=== PATIENT | male | born 1965 | race African-American/Black ===

== ENCOUNTER 2017-09-24 11:43 | Emergency (ER) | payer SELFPAY ==
[~2017-09-24] VITALS: Ht 190.5 cm; Wt 100.0 kg
[2017-09-24 11:49] VITALS: BP 145/79; PULSE 96; RESP 20; TEMP 98.9; O2SAT 98
--- NOTE | 2017-09-24 12:10 | PD ---
HPI Chief Complaint: Cold / Flu Symptoms Time Seen by Provider: 12:02 Travel History International Travel<30 days: No Contact w/Intl Traveler<30days: No Traveled to known affect area: No History of Present Illness HPI 52-year-old male presents emergency department for evaluation of cough, chest congestion, sore throat 3 days. Patient is uncertain of fever. He has had intermittent chills. Cough is nonproductive. Has tried ahum-bov-asxjouh medication with no relief of his symptoms. Patient has no other symptoms to report. [facility] Past Medical History Medical History: Denies Significant Hx Tetanus Vaccination: Unknown Past Surgical History Surgical History: No Previous Surgery Social History Alcohol Use: No Tobacco Use: No Substance Use: No Allergies-Medications (Allergen,Severity, Reaction): Coded Allergies: No Known Allergies (Unverified , 09/24/17) Reported Meds & Prescriptions Reported Meds & Active Scripts Active No Active Prescriptions or Reported Medications Review of Systems Except as stated in HPI: all other systems reviewed are Neg Physical Exam Narrative GENERAL: Well-nourished, well-developed male patient in no acute distress SKIN: No rashes, ecchymoses or lesions. Cool and dry. HEAD: Normocephalic. EYES: No scleral icterus. No injection or drainage. ENT: Mucosa pink and moist. Pharynx with erythema, no exudate no uvular edema. No uvular, palatal, or tonsillar deviation. Airway patent. Nasal turbinates appear normal without nasal blood, purulent drainage or septal hematoma. NECK: Supple, trachea midline. No JVD or lymphadenopathy. CARDIOVASCULAR: Regular rate and rhythm without murmurs, gallops, or rubs. RESPIRATORY: Breath sounds equal bilaterally. No accessory muscle use. GASTROINTESTINAL: Abdomen soft, non-tender, nondistended. MUSCULOSKELETAL: No cyanosis, or edema. BACK: Nontender without obvious deformity. No CVA tenderness. Data Data Last Documented VS Vital Signs Date Time Temp Pulse Resp B/P (MAP) Pulse Ox O2 Delivery O2 Flow Rate FiO2 09/24/17 11:49 98.9 96 20 145/79 (101) 98 Orders Orders Influenzae A/B Antigen (09/24/17 12:10) Group A Rapid Strep Screen (09/24/17 12:10) Dexamethasone Inj (Decadron Inj) (09/24/17 12:30) Strep Culture (Group A) (09/24/17 12:15) Ed Discharge Order (09/24/17 12:48) [facility] Medical Decision Making Medical Screen Exam Complete: Yes Emergency Medical Condition: Yes Medical Record Reviewed: Yes Differential Diagnosis Pharyngitis viral versus strep versus common cold versus postnasal drip versus allergies Narrative Course 52-year-old male presents emergency department for evaluation of sore throat, cough, congestion 3 days. Patient appears nontoxic. Slightly tachycardic but otherwise vital signs are stable. Rapid strep screen is negative. Influenza is negative. Patient will be treated for viral pharyngitis. He is counseled on care and encouraged follow-up with primary care provider. He agrees to return immediately with acute worsening symptoms. Diagnosis Primary Impression: Pharyngitis Qualified Codes: J02.9 - Acute pharyngitis, unspecified Referrals: Primary Care Physician Patient Instructions: General Instructions, Pharyngitis (ED) Departure Forms: Tests/Procedures, Work Release Enter return to work date: September 29, 2017 Additional Instructions: Avoid abrasive and acidic foods Warm salt water gargles may help to alleviate symptoms Follow-up with a primary care provider Tylenol or ibuprofen as directed on the package as needed for fever and/or pain Return immediately to the emergency department with any acute worsening symptoms Med/Other Pt SpecificInfo: No Change to Meds Scripts No Active Prescriptions or Reported Meds Disposition: 01 DISCHARGE HOME Condition: Stable BowdenEstella carrera [place] September 24, 2017 12:10
[2017-09-24] MEDS ORDERED: DEXAMETHASONE SOD PHOS 4 MG/ML VIAL IM ONE (12:30)
== END 2017-09-24 13:07 | disposition home or self-care (01) ==
LOC: NEPK 11:43
DX: J02.9 Acute pharyngitis, unspecified (principal)
CPT/HCPCS: 87081; 87804; 87880; 96372; 99283; J1100